=== PATIENT | male | born 1970 | race Caucasian/White ===

== ENCOUNTER → 2016-09-21 | Day surgery (SDC) | payer OTHER ==
[~2016-09-21] VITALS: Ht 177.8 cm; Wt 82.0 kg
[~2016-09-21] MED LIST: DO NOT ADM ANY ANTICOAGULANT DRUGS PRN; PROPOFOL 200 MG/20 ML AMP IV ONE
[2016-09-21 11:53] VITALS: BP 142/88; PULSE 89; RESP 16; TEMP 97.9; O2SAT 100
--- NOTE | 2016-09-21 12:03 | PD ---
Physical Exam Date Seen by Provider: September 21, 2016 Time Seen by Provider: 12:00 Narrative Pt is a 46 y/u male presenting to the Ed with CC of a fish bone lodged in his upper throat. Pt states he was eating salmon last night and since then he has had a feeling of a foreign body lodged in his upper airway. No dysphagia or drooling. He has attempted to eat bread, marshmallows in order to dislodge the bone with no improvement. VSS. Awaiting bed placement. Imaging ordered. Data Data Last Documented VS Vital Signs Date Time Temp Pulse Resp B/P Pulse Ox O2 Delivery O2 Flow Rate FiO2 09/21/16 11:53 97.9 89 16 142/88 100 MDM Supervised Visit with MARLON: Maria G Fuentes September 21, 2016 12:03
[2016-09-21 13:17] LABS: AUTOMATED NEUTROPHIL # 4.1 TH/MM3 (1.8-7.7); BASOPHIL % 0.4 % (0.0-2.0); EOSINOPHIL % 0.5 % (0.0-4.0); HEMATOCRIT 45.7 % (39.0-51.0); HEMO FLAGS DIFF FINAL; LYMPH % 23.3 % (9.0-44.0); LYMPHOCYTE # 1.5 TH/MM3 (1.0-4.8); MEAN CELL VOLUME 86.1 FL (80.0-100.0); MEAN CORPUSCULAR HGB CONC 34.8 % (32.0-36.0); MONO % 11.6 % (0.0-8.0); NEUT % 64.2 % (16.0-70.0); PLATELET COUNT 190 TH/MM3 (150-450); RED BLOOD COUNT 5.31 MIL/MM3 (4.50-5.90); WHITE BLOOD COUNT 6.4 TH/MM3 (4.0-11.0)
--- NOTE | 2016-09-21 13:23 | RADRPT ---
EXAM DATE/TIME: 09/21/2016 12:26 [place] COMPARISON: No previous studies available for comparison. INDICATIONS : Evaluate for foreign object; fish bone stuck in throat today. MEDICAL HISTORY : None. SURGICAL HISTORY : None. ENCOUNTER: Initial ACUITY: 1 day PAIN SCORE: 8/10 LOCATION: Base of tongue. FINDINGS: Two view examination of the soft tissues of the neck demonstrates the hypopharyngeal airway to have a grossly normal configuration. The trachea is midline. No radiopaque foreign bodies are seen. The d egenerative cervical spine. CONCLUSION: No radiopaque foreign body. Ino Isaac Jr., MD on September 21, 2016 at 13:19 Board Certified Radiologist. This report was verified electronically.
[2016-09-21 13:28] LABS: BICARBONATE 28.3 MEQ/L (21.0-32.0); POTASSIUM 3.8 MEQ/L (3.5-5.1)
--- NOTE | 2016-09-21 13:35 | PD ---
HPI Chief Complaint: GI Complaint Time Seen by Provider: 12:37 Travel History International Travel<30 days: No Contact w/Intl Traveler<30days: No Traveled to known affect area: No History of Present Illness HPI Patient is a 46 year old male who comes in complaining of a fishbone being stuck in his throat. He says he was eating [place] last night and felt the bone get lodged in his throat. He says he has a lot of pain with swallowing, worse with swallowing water. He has tried multiple things to dislodge the bone, including eating bread and drinking lots of fluids. He has no other complaints at this time. He denies any difficulty breathing. [facility] Past Medical History Medical History: Denies Significant Hx Diminished Hearing: No Past Surgical History Surgical History: No Previous Surgery Social History Alcohol Use: Yes (Beer last night) Tobacco Use: No Substance Use: No Allergies-Medications (Allergen,Severity, Reaction): Coded Allergies: No Known Allergies (Unverified , 09/21/16) Review of Systems Except as stated in HPI: all other systems reviewed are Neg General / Constitutional: No: Fever, Chills HENT: Positive: Sore Throat, No: Headaches, Lightheadedness Cardiovascular: No: Chest Pain or Discomfort Respiratory: No: Shortness of Breath Gastrointestinal: No: Nausea, Vomiting Physical Exam Narrative GENERAL: Awake and alert, in no acute distress. SKIN: Focused skin assessment warm/dry. HEAD: Atraumatic. Normocephalic. EYES: Pupils equal and round. No scleral icterus. ENT: Mucous membranes pink and moist. Bone cannot be seen on exam. Tonsils and pharynx appear within normal limits. NECK: Trachea midline. No JVD. CARDIOVASCULAR: Regular rate and rhythm. No murmur appreciated. RESPIRATORY: No accessory muscle use. Clear to auscultation. Breath sounds equal bilaterally. NEUROLOGICAL: Awake and alert. No obvious cranial nerve deficits. Motor grossly within normal limits. Normal speech. PSYCHIATRIC: Appropriate mood and affect; insight and judgment normal. Data Data Last Documented VS Vital Signs Date Time Temp Pulse Resp B/P Pulse Ox O2 Delivery O2 Flow Rate FiO2 09/21/16 11:53 97.9 89 16 142/88 100 Orders Soft Tissue Neck (09/21/16 ) Complete Blood Count With Diff (09/21/16 12:38) Basic Metabolic Panel (Bmp) (09/21/16 12:38) Admit Order (Ed Use Only) (09/21/16 ) Labs Laboratory Tests Test 09/21/16 13:00 White Blood Count 6.4 TH/MM3 Red Blood Count 5.31 MIL/MM3 Hemoglobin 15.9 GM/DL Hematocrit 45.7 % Mean Corpuscular Volume 86.1 FL Mean Corpuscular Hemoglobin 30.0 PG Mean Corpuscular Hemoglobin 34.8 % Concent Red Cell Distribution Width 13.0 % Platelet Count 190 TH/MM3 Mean Platelet Volume 7.9 FL Neutrophils (%) (Auto) 64.2 % Lymphocytes (%) (Auto) 23.3 % Monocytes (%) (Auto) 11.6 % Eosinophils (%) (Auto) 0.5 % Basophils (%) (Auto) 0.4 % Neutrophils # (Auto) 4.1 TH/MM3 Lymphocytes # (Auto) 1.5 TH/MM3 Monocytes # (Auto) 0.7 TH/MM3 Eosinophils # (Auto) 0.0 TH/MM3 Basophils # (Auto) 0.0 TH/MM3 CBC Comment DIFF FINAL Differential Comment Sodium Level 141 MEQ/L Potassium Level 3.8 MEQ/L Chloride Level 106 MEQ/L Carbon Dioxide Level 28.3 MEQ/L Anion Gap 7 MEQ/L Blood Urea Nitrogen 15 MG/DL Creatinine 1.00 MG/DL Estimat Glomerular Filtration 81 ML/MIN Rate Random Glucose 92 MG/DL Calcium Level 9.2 MG/DL MDM Medical Decision Making Medical Screen Exam Complete: Yes Emergency Medical Condition: Yes Differential Diagnosis Throat irritation versus foreign body versus tonsillitis Narrative Course Patient is a 46-year-old male who comes in because he feels there is a fish bone stuck in his throat. Exam shows no acute abnormalities. IV established, labs sent. X-ray of the neck performed. X-ray does not reveal foreign body. GI consulted, Dr. Martin will come take him for EGD. Diagnosis Primary Impression: Esophageal foreign body Qualified Code: T18.108A - Esophageal foreign body, initial encounter Admitting Information Admitting Physician Requests: Observation Condition: Stable Lala Pugh MD September 21, 2016 13:35
--- NOTE | 2016-09-21 17:01 | PD.PROCEDR ---
GI Procedure PROCEDURE PERFORMED EGD INDICATION FOR PROCEDURE Foreign body PROCEDURE: The procedure, risks and benefits were discussed with Mr. Lewis and informed consent was obtained. Anesthesia sedated him with Diprivan. He was placed in the left lateral decubitus position. EGD: The Pentax videoscope was introduced through the oropharynx and advanced to the second portion of the duodenum under direct visualization. Retroflexion was performed in the stomach. FINDINGS: The oropharynx appeared to be unremarkable and within normal limits The Perilaryngeal pharynx also was normal The esophagus was normal The stomach was normal The duodenum was normal ESTIMATED BLOOD LOSS: None SPECIMENS REMOVED: None COMPLICATIONS: None IMPRESSION: Normal EGD no foreign body PLAN: Patient doing well does not feel the foreign body anymore Patient reassured Resume normal diet Discharge from GI standpoint Jean Claude Saba MD September 21, 2016 17:01
--- NOTE | 2016-09-21 17:04 | MB ---
cc: PAYTON LAMAR M.D.HOLLIS DATE OF CONSULTATION: 09/21/2016. REASON FOR CONSULTATION: Esophageal foreign body. PATIENT OF: Dr. Pugh in the emergency room. HISTORY OF PRESENT ILLNESS: Mr. Lewis is a 46-year-old gentleman who was eating fish last night. He states that he feels that piece of the bone got lodged in the back of his throat. He has been having painful swallowing since then. He says he tried to dislodge the bone by eating bread and drinking lots of fluid. This has not worked. He has no other complaints at this time. PAST MEDICAL HISTORY: None. PAST SURGICAL HISTORY: None. SOCIAL HISTORY: Alcohol. No tobacco. ALLERGIES: None. REVIEW OF SYSTEMS: Currently the patient is having some difficulty with swallowing but no other symptoms. PHYSICAL EXAMINATION: GENERAL: The physical exam reveals a well-nourished man in no apparent distress. VITAL SIGNS: Stable. HEAD AND NECK: Anicteric sclerae. CHEST: Bilateral air entry with rales. ABDOMEN: Abdomen is soft. Nontender. No hepatosplenomegaly. Bowel sounds present. HUMANE AGENT: Nonfocal. RECTAL: Deferred at this time. LABORATORY STUDIES: Labs reveal white cell count of 6.4, hemoglobin 15.9. IMAGING STUDIES: X-ray of the neck is unremarkable. IMPRESSION: Esophageal foreign body. RECOMMENDATIONS: 1. EGD with foreign body removal planned under general anesthesia; this should be done here shortly. 2. Leave n.p.o. at this time. The risks and limitations have been discussed with the patient and his significant other at the bedside. Further recommendations to follow. Thank you for this referral. MD MOE [place]/AMY /3:11 PM /4:56 PM
[2016-09-21 17:58] VITALS: BP 136/84; PULSE 65; RESP 18; TEMP 98.4; O2SAT 96
== END | disposition home or self-care (01) ==
LOC: NEPD 11:52
PROVIDERS: ATTEND Internal Medicine Gastroenterology
DX: T17.228A Food in pharynx causing other injury, initial encounter (principal); Z01.818 Encounter for other preprocedural examination
CPT/HCPCS: 70360; 80048; 85025; 99284